=== PATIENT | female | born 1945 ===

== ENCOUNTER 2018-07-08 11:53 | Emergency (ER) | payer MEDICARE ==
[2018-07-08 12:14] VITALS: RESP 20; TEMP 97; O2SAT 96
--- NOTE | 2018-07-08 14:08 | C.PDOC ---
History Of Present Illness 73 year old female present to ED with complaint of bilateral shoulder pain and bilateral knee pain that began yesterday. Patient has a PMHx of hypertension, asthma, and questionable osteoarthritis v. rheumatoid arthritis. Patient describes the pain as persistent and states that is why she came today. Patient denies any allergies and is compliant with her hypertension medication. She admits to rubbing benjay on the afflicted areas with no improvement. She denies trauma, fall, numbness, or weakness. Time Seen by Provider: 07/08/18 13:21 Chief Complaint (Nursing): Weakness/Neurological Deficit History Per: Patient History/Exam Limitations: no limitations Onset/Duration Of Symptoms: Days (1) Current Symptoms Are (Timing): Still Present Fall Associated With With Symptoms: No Past Medical History Reviewed: Historical Data, Nursing Documentation, Vital Signs Vital Signs: Last Vital Signs Temp 97 F L 07/08/18 12:10 Pulse 113 H 07/08/18 12:10 Resp 20 07/08/18 12:10 BP 125/78 07/08/18 12:10 Pulse Ox 96 07/08/18 12:10 - Medical History PMH: Asthma, HTN Surgical History: No Surg Hx Family History: States: Unknown Family Hx - Social History Hx Alcohol Use: No Hx Substance Use: No - Immunization History Hx Tetanus Toxoid Vaccination: No Hx Influenza Vaccination: Yes Hx Pneumococcal Vaccination: No Review Of Systems Constitutional: Negative for: Fever, Chills, Weakness Cardiovascular: Negative for: Chest Pain Gastrointestinal: Negative for: Abdominal Pain Musculoskeletal: Positive for: Shoulder Pain (bilateral), Leg Pain (bilateral knee pain) Neurological: Negative for: Weakness, Numbness, Dizziness Physical Exam - Physical Exam Appears: Well, Non-toxic, No Acute Distress Skin: Normal Color, Warm, Dry Head: Atraumatic, Normacephalic Neck: Normal ROM, Supple Chest: Symmetrical, No Deformity Cardiovascular: Rhythm Regular, No Murmur Respiratory: No Accessory Muscle Use, No Rales, No Rhonchi, No Wheezing Gastrointestinal/Abdominal: Soft, No Tenderness Extremity: Tenderness (bilateral shoulders tender to palpation anteriorally and posteriorally ), Capillary Refill (<2 seconds) Extremity: Bilateral: Atraumatic, Normal Color And Temperature, Normal ROM Pulses: Left Radial: Normal, Right Radial: Normal, Left Dorsalis Pedis: Normal, Right Dorsalis Pedis: Normal Neurological/Psych: Oriented x3, Normal Speech, Normal Cognition ED Course And Treatment O2 Sat by Pulse Oximetry: 96 (in RA) Progress Note: Patient given Flexeril PO and Toradol IM. Disposition Counseled Patient/Family Regarding: Diagnosis, Need For Followup, Rx Given - Disposition Referrals: Angelo Metcalf MD [Staff Provider] - Disposition: HOME/ ROUTINE Disposition Time: 15:35 Condition: STABLE Additional Instructions: FOLLOW UP WITH YOUR DOCTOR IN 1-2 DAYS USE MEDICATIONS FOR PAIN NEEDED RETURN TO EMERGENCY ROOM IF SYMPTOMS BECOME WORSE SEGUIR CON PEARL MD[place] EN 1-2 COWART UTILICE MEDICAMENTOS PARA EL DOLOR LORENZA SE NECESITA VUELVA A LA MAURO DE EMERGENCIA SI LOS SNTOMAS SE HACEN [place] Prescriptions: Cyclobenzaprine [Flexeril] 10 mg PO BID PRN #15 tab PRN Reason: Muscle Spasm Naproxen 375 mg PO BID PRN #20 tablet PRN Reason: pain Instructions: Osteoarthritis (DC) Forms: [employer] (Slovenian) Print Language: TURKISH - Clinical Impression Clinical Impression: Arthritis pain, Arthralgia - Scribe Statement The provider has reviewed the documentation as recorded by the Scribe (Emilia Boogie) All medical record entries made by the Scribe were at my direction and persona lly dictated by me. I have reviewed the chart and agree that the record accurately reflects my personal performance of the history, physical exam, medical decision making, and the department course for this patient. I have also personally directed, reviewed, and agree with the discharge instructions and disposition.
[2018-07-08 16:04] VITALS: BP 142/83; PULSE 78
== END 2018-07-08 16:14 | disposition home or self-care (01) ==
LOC: C.ER 11:53
DX: M25.512 Pain in left shoulder (principal); M25.511 Pain in right shoulder; M25.561 Pain in right knee; M25.562 Pain in left knee; M19.90 Unspecified osteoarthritis, unspecified site
CPT/HCPCS: 96372; 99285; J1885